=== PATIENT | female | born 1960 | race Caucasian/White ===

== ENCOUNTER 2016-12-28 10:14 | Emergency (ER) | payer BC ==
--- NOTE | 2017-01-05 08:11 | ER ---
ADMIT: 12/28/2016 RM/LOC: ER [facility] MR#: [id number] [address] [id number] IQRA TOGenet Mcnally [address] [place] [address] Emergency Room Report SEX: F AGE: 56 : 1960 DATE: 12/28/2016 ADDENDUM: CHIEF COMPLAINT: Right ankle pain. HISTORY OF PRESENT ILLNESS: This is a 56-year-old female who twisted her ankle at 6:30 this morning. She is unable to bear weight on it, rates her pain at 8/10. COURSE IN THE EMERGENCY ROOM: An x-ray was done. Dr. Sunshine reviewed the x- ray with me. At this time, we do not see any fracture. CLINICAL IMPRESSION: Right ankle sprain. Discharging her home. Having her take her home medications for pain. I sent her home with crutches and an air splint. I told her to use the crutches for a few days and then she is able to bear weight as tolerated. NTIA Conteh / Frank Sunshine MD / joseph JOB #: [id number] CC: Frank Sunshine MD, Attending Physician
== END 2016-12-28 12:00 | disposition home or self-care (01) ==
LOC: ER 10:14
DX: S93.401A Sprain of unspecified ligament of right ankle, initial encounter (principal); Z85.3 Personal history of malignant neoplasm of breast; X50.1XXA Overexertion from prolonged static or awkward postures, initial encounter